=== PATIENT | male | born 2000 | race Two or more races ===

== ENCOUNTER 2020-04-03 22:09 | Emergency (ER) | payer BC, MEDICAID ==
[2020-04-03 22:21] VITALS: BP 122/51
--- NOTE | 2020-04-03 23:11 | EKG REPORT ---
SEVERITY:- NORMAL ECG - SINUS RHYTHM ST ELEV, PROBABLE NORMAL EARLY REPOL PATTERN : Confirmed by: Martina uGadalupe MD 03-Apr-2020 23:10:13
[2020-04-03] MEDS ORDERED: ASPIRIN 81 MG TABLET, CHEWABLE PO ONE (23:19)
--- NOTE | 2020-04-03 23:21 | ER Document Report ---
ED Medical Screen (RME) - General Mode of Arrival: Wheelchair Information source: Patient <GERALDINE AUGUSTIN - Last Filed: 04/03/20 23:18> <BARCAS - Last Filed: 04/04/20 00:50> - General Chief Complaint: Chest Pain Stated Complaint: CHEST PAIN Time Seen by Provider: 04/03/20 23:18 Notes: 19-year-old male presented to ED for complaint of severe sharp pain at work. He states at the time of the like his heart was congested of his chest and was very rapid. He states that was about 8:50 PM tonight. He does not smoke drink or drugs. He is HIV positive and taken antivirals for this. He is alert oriented respirations regular nonlabored at this time. He states the pain is much better now than it was earlier. I have greeted and performed a rapid initial assessment of this patient. A comprehensive ED assessment and evaluation of the patient, analysis of test results and completion of medical decision making process will be conducted by an additional ED providers. (GERALDINE AUGUSTIN) Past Medical History - Social History Frequency of alcohol use: None Drug Abuse: None <GERALDINE AUGUSTIN - Last Filed: 04/03/20 23:18> Physical Exam - Vital signs Vitals: Temp Pulse Resp BP Pulse Ox 98.5 F 69 16 122/51 L 97 04/03/20 22:20 04/03/20 22:20 04/03/20 22:20 04/03/20 22:20 04/03/20 22:20 Course - Laboratory Result Diagrams: 04/03/20 23:32 04/03/20 23:32 - Diagnostic Test Radiology reviewed: Image reviewed, Reports reviewed - EKG Interpretation by Nj EKG shows normal: Sinus rhythm Rate: Normal Rhythm: NSR <SERJIOTRUDICAS Tafoya - Last Filed: 04/04/20 00:50> - Vital Signs Vital signs: Temp Pulse Resp BP Pulse Ox 98.5 F 69 16 122/51 L 97 04/03/20 22:20 04/03/20 22:20 04/03/20 22:20 04/03/20 22:20 04/03/20 22:20 - Laboratory Laboratory results interpreted by me: 04/03/20 04/03/20 23:32 23:32 RBC 6.02 H RDW 14.4 H ALT 54 H Total Protein 8.6 H Albumin 5.1 H - EKG Interpretation by Me Additional EKG results interpreted by me: 04/04/20 00:[address]/J-point elevation in a couple of precordial leads without reciprocal change most concerning for benign early re-pole only ([facility] DINERO) Doctor's Discharge <GERALDINE AUGUSTIN - Last Filed: 04/03/20 23:18> <CAS DINERO - Last Filed: 04/04/20 00:50> - Discharge Clinical Impression: Atypical chest pain Condition: Good Disposition: HOME, SELF-CARE Instructions: Chest Pain of Unclear Cause ([facility]) Additional Instructions: Follow-up with your primary care and HIV care team as already scheduled
[2020-04-03 23:41] LABS: ABSOLUTE BASOPHILS # (AUTO) 0.1 10^3/uL (0.0-0.2); ABSOLUTE EOSINOPHILS # (AUTO) 0.1 10^3/uL (0.0-0.6); ABSOLUTE LYMPHOCYTES (AUTO) 2.4 10^3/uL (0.5-4.7); ABSOLUTE MONOCYTES (AUTO) 0.5 10^3/uL (0.1-1.4); ABSOLUTE NEUT (AUTO) 5.7 10^3/uL (1.7-8.2); BASOPHILS % (AUTO) 0.6 % (0-2); EOSINOPHILS % (AUTO) 1.6 % (0-6); HEMATOCRIT 49.4 % (37.9-51.0); LYMPHOCYTES % (AUTO) 27.5 % (13-45); MEAN CORPUSCULAR HEMOGLOBIN 28.3 pg (27.0-33.4); MEAN CORPUSCULAR HGB CONC 34.5 g/dL (32.0-36.0); MEAN CORPUSCULAR VOLUME 82 fl (80-97); MONOCYTES % (AUTO) 5.7 % (3-13); PLATELET COUNT 239 10^3/uL (150-450); RED BLOOD COUNT 6.02 10^6/uL (4.35-5.55); RED CELL DISTRIBUTION WIDTH 14.4 % (11.5-14.0); SEGMENTED NEUTROPHILS % (AUTO) 64.6 % (42-78); TOTAL CELLS COUNTED % (AUTO) 100 %; WHITE BLOOD COUNT 8.7 10^3/uL (4.0-10.5)
[2020-04-03 23:53] LABS: INTERNATIONAL RATION (INR) 0.93; PROTHROMBIN TIME 12.7 SEC (11.4-15.4)
[2020-04-04 00:03] LABS: ALBUMIN 5.1 g/dL (3.5-5.0); ALKALINE PHOSPHATASE 39 U/L (38-126); ANION GAP 7 (5-19); ASPARTATE AMINO TRANSFERASE 40 U/L (17-59); BILIRUBIN,TOTAL 0.5 mg/dL (0.2-1.3); BLOOD UREA NITROGEN 15 mg/dL (7-20); CARBON DIOXIDE 30 mmol/L (22-30); CHLORIDE 101 mmol/L (98-107); CREATINE KINASE 113 U/L (55-170); GLUCOSE 94 mg/dL (75-110); POTASSIUM 4.3 mmol/L (3.6-5.0); TOTAL PROTEIN 8.6 g/dL (6.3-8.2)
--- NOTE | 2020-04-04 00:37 | ER Document Report ---
ED General - General Chief Complaint: Chest Pain Stated Complaint: CHEST PAIN Time Seen by Provider: 04/03/20 23:18 Mode of Arrival: Wheelchair Notes: 19-year-old male with well-controlled HIV on medications presents with an episode of palpitations and sharp chest pain which occurred after going from a bending to a standing position at work and lasted a half an hour. Pain resolved and he did not want to come to the hospital but someone called EMS and there EKG was concerning so he was convinced to come in. His pain resolved over an hour ago and has had no recurrent symptoms. Though he is HIV positive he has no history of coronary disease or other AIDS defining illness and is followed by a clinic. He has no cardiac problems does not smoke and is currently symptomfree. Past Medical History - General Information source: Patient - Social History Smoking Status: Never Smoker Frequency of alcohol use: None Drug Abuse: None Family History: None Patient has homicidal ideation: No Review of Systems - Review of Systems Notes: REVIEW OF SYSTEMS GEN: Denies fever, chills, weight loss ENT: Denies sore throat, nasal discharge, ear pain EYES: Denies blurry vision, eye pain, discharge CV: Chest pain palpitations RESP: Denies cough, shortness of breath, wheezing GI: Denies abdominal pain, nausea, vomiting, diarrhea MSK: Denies joint pain/swelling, edema, SKIN: Denies rash, skin lesions LYMPH: Denies swollen glands/lymph nodes NEURO: Denies headache, focal weakness or numbness, dizziness PSYCH: Denies depression, suicidal or homicidal ideation PHYSICAL EXAMINATION General: No acute distress, well-nourished Head: Atraumatic, normocephalic ENT: Mouth normal, oropharynx moist, no exudates or tonsillar enlargement Eyes: Conjunctiva normal, pupils equal, lids normal Neck: No JVD, supple, no guarding CVS: Normal rate, regular rhythm, no murmurs Resp: No resp distress, equal and normal breath sounds bilaterally GI: Nondistended, soft, no tenderness to palpation, no rebound or guarding Ext: No deformities, no edema, normal range of motion in upper and lower ext Back: No CVA or midline TTP Skin: No rash, warm Lymphatic: No lymphadeopathy noted Neuro: Awake, alert. Face symmetric. GCS 15. Physical Exam - Vital signs Vitals: Temp Pulse Resp BP Pulse Ox 98.5 F 69 16 122/51 L 97 04/03/20 22:20 04/03/20 22:20 04/03/20 22:20 04/03/20 22:20 04/03/20 22:20 Course - Re-evaluation Re-evalutation: 04/04/20 00:36 Patient presented difficult chest pain palpitations from going from sitting to standing now resolved. His EKG shows ST/J-point elevation with scalloped c oncave contours consistent with benign early repolarization and given that he is pain-free with no cardiac disease and there is no reciprocal change I doubt that this reflects an NC. His Trope is negative his x-ray is normal in the range of his lab work-up is negative. He remains asymptomatic. The patient is stable for discharge will follow up with his primary care doctor. I have discussed wit h the patient there likely diagnosis, aftercare plan, follow-up plans and my usual and customary return precautions. They verbalized understanding of this. - Vital Signs Vital signs: Temp Pulse Resp BP Pulse Ox 98.5 F 69 16 122/51 L 97 04/03/20 22:20 04/03/20 22:20 04/03/20 22:20 04/03/20 22:20 04/03/20 22:20 - Laboratory Result Diagrams: 04/03/20 23:32 04/03/20 23:32 Laboratory results interpreted by me: 04/03/20 04/03/20 23:32 23:32 RBC 6.02 H RDW 14.4 H ALT 54 H Total Protein 8.6 H Albumin 5.1 H Discharge - Discharge Clinical Impression: Atypical chest pain Condition: Good Disposition: HOME, SELF-CARE Instructions: Chest Pain of Unclear Cause ([facility]) Additional Instructions: Follow-up with your primary care and HIV care team as already scheduled
--- NOTE | 2020-04-04 00:48 | RADIOLOGY REPORT (SQ) ---
EXAM DESCRIPTION: XR CHEST 2 VIEWS COMPLETED DATE/TME: 04/03/2020 23:19 CLINICAL INDICATION: 19-year-old male with chest pain. TECHNIQUE: Two-view, PA and lateral projections of the chest were obtained. COMPARISON: None. FINDINGS: Unremarkable cardiac and mediastinal silhouette. Heart size is normal. Lungs are clear without focal opacity, pneumothorax or pleural effusions. The visualized bones are within normal limits. IMPRESSION: No acute cardiopulmonary abnormalities.
== END 2020-04-04 00:45 | disposition home or self-care (01) ==
LOC: EDBD → ER 22:09
DX: R07.89 Other chest pain (principal); B20 Human immunodeficiency virus [HIV] disease
CPT/HCPCS: 36415; 71046; 80053; 82550; 83735; 84484; 85025; 85610; 85730; 93005; 93010; 99285